=== PATIENT | male | born 1940 | race Caucasian/White ===

== ENCOUNTER 2020-08-10 15:05 | Inpatient (IN) | payer MEDICARE, SELFPAY ==
[2020-08-10] VITALS (8 sets, daily range): BP systolic 126–164; BP diastolic 58–97; PULSE 56–82; RESP 16–18; TEMP 36.5–37.2; O2SAT 97–100; BMI 33.5
--- NOTE | ~2020-08-10 | XR_ITS ---
EXAMINATION: XR surgery orthopedic DATE: 08/11/2020 14:14 INDICATION: Left hip nailing TECHNIQUE: 4 fluoroscopic spot images of the left hip and femur were obtained during procedure perfor med by Dr. Ford. Radiologist was not present for the imaging or procedure. The amount of fluorosco py time used during this procedure was 2.1 minutes. COMPARISON: 08/10/2020 FINDINGS: Interval reduction and internal fixation of the intratrochanteric/subtrochanteric fracture of the pro ximal femur with antegrade intramedullary vickie and femoral neck dynamic compression screw and distal i nterlocking screw fixation. Alignment post fixation appears near-anatomic. Mild to moderate left hip osteoarthritis with marginal osteophytes along the acetabular rim. IMPRESSION: 1. Near-anatomic alignment post internal fixation of an intertrochanteric/subtrochanteric fracture of the proximal left femur. Reviewed, dictated and finalized at location A. IMPRESSION: 1. Near-anatomic alignment post internal fixation of an intertrochanteric/subtr ochanteric fracture of the proximal left femur.
--- NOTE | ~2020-08-10 | XR_ITS ---
EXAMINATION: XR chest 1V DATE: 08/10/2020 15:45 INDICATION: Hypertension. Preop. TECHNIQUE: A single frontal view of the chest was obtained. COMPARISON: None. FINDINGS: The chest demonstrates clear lungs without pneumonia, pleural effusion, or pneumothorax. Th e heart size is normal. IMPRESSION: 1. No acute cardiopulmonary disease. Reviewed, dictated and finalized at location A.
--- NOTE | ~2020-08-10 | XR_ITS ---
EXAMINATION: XR hip LT 2V w AP pelvis DATE: 08/10/2020 15:43 INDICATION: Left hip pain. TECHNIQUE: An anteroposterior view of pelvis and 2 views of left hip were obtained. COMPARISON: None. FINDINGS: There is an intertrochanteric and subtrochanteric fracture of proximal left femur. The main distal fracture fragment demonstrates posterior angulation and 30 degrees varus angulation. There is moderate osteoarthritis of the hips. There is at least mild lumbar spondylosis. IMPRESSION: 1. Intertrochanteric and subtrochanteric fracture of proximal left femur. 2. Moderate osteoarthritis of the hips. Reviewed, dictated and finalized at location A.
--- NOTE | 2020-08-10 15:19 | ECG_ITS ---
Measurements Intervals [place] Rate: 78 P: [place]: 0 QRS: 3 QRSD: 102 T: -10 QT: 372 QTc: 426 Interpretive Statements ATRIAL FIBRILLATION VENTRICULAR PREMATURE COMPLEX INCOMPLETE RIGHT BUNDLE BRANCH BLOCK BASELINE ARTIFACT- I, II, III, AVF ABNORMAL ECG Electronically Signed On 08-10-2020 16:12:32 CDT by Quinn Redmond D.O.
--- NOTE | 2020-08-10 15:47 | ED.GENADULT ---
HPI - General Adult General Chief complaint: Extremity Injury, Lower Stated complaint: FALL/L HIP PAIN Source: RN notes reviewed History of Present Illness HPI narrative: Patient presents emergency department from home via EMS for left hip pain. Patient states he was walking when he went to turn his left foot became stuck causing him to fall to the ground collapsed onto his left hip. He states that since that time is had pain in his left hip and is been able to stand. He denies striking his head or any other injuries. Denies any fevers or chills chest pain shortness of breath numbness or tingling in the extremities or any other symptoms at this time Related Data Home Medications Medication Instructions Recorded Confirmed candesartan 8 mg PO DAILY 08/10/20 08/10/20 Allergies Allergy/AdvReac Type Severity Reaction Status Date / Time No Known Allergies Allergy Verified 08/10/20 15:13 Review of Systems Review of Systems: Narrative: Gen.: Denies fevers or chills Eyes: Denies eye pain or visual change ENT: Denies congestion Respiratory: Denies shortness of breath or cough CV: Denies chest pain or palpitations GI: Denies abdominal pain nausea, emesis or diarrhea Musculoskeletal: See HPI Neuro: Denies numbness, tingling, weakness or focal weakness Skin: Denies rash Except as documented, all other systems reviewed and negative [facility] Past Medical History Medical History (Updated 08/10/20 @ 16:57 by Robbin Wadsworth DO) Hypertension Social History Social History (Updated 08/10/20 @ 15:47 by Robbin Wadsworth DO) Smoking status: Never smoker Exam Narrative: Exam Narrative: APPEARANCE: No acute distress, nontoxic, resting in bed EYES: EOMI PERRL HEENT: Normocephalic, atraumatic, OMM Neck: Supple no midline tenderness to palpation RESPIRATORY: No respiratory distress Clear to auscultation bilaterally with no rhonchi wheezing or rales. CARDIOVASCULAR: Irregular irregular without murmurs rubs or gallops. ABDOMINAL: Soft, nontender, nondistended, no rebound or guarding MUSCULOSKELETAl: Moves all extremities. No clubbing, cyanosis or edema. No tenderness palpation bilateral upper and right lower extremity, the left hip is diffusely tender to palpation with pain with any movement, no tenderness of the left knee or ankle, dorsalis pedis pulse 2+, neurovascular intact NEURO: Awake and alert. Following commands, speech normal, no focal deficits SKIN:: Warm, dry. No rashes lesions or abrasions PSYCHIATRIC: Normal affect/mood, Course Course Emergency Course: Discussed with patient is atrial fibrillation. He states that 1 month ago he had had a physical that it found the A. fib. He states that time he seen his PCP and had an outpatient echo done that showed a valve abnormality which was felt to be the cause of his A. fib and especially following up with cardiology this coming week for further evaluation Discussed Dr. Ford presentation work-up. Agrees with consult with patient be n.p.o. after midnight Discussed with [employer] and Tera for Dr. Ibrahim presentation work-up. Agrees with consult Discussed with BENJY Bullock for Dr Grace presentation work-up. Agrees with admission at this time Discussed with patient and family results of workup and diagnosis. Discussed need for admission. Patient and family understand and agree to current treatment plan Vital Signs Vital signs: Vital Signs Temperature 97.9 F 08/10/20 15:09 Pulse Rate 82 08/10/20 15:09 Respiratory Rate 18 08/10/20 15:09 Blood Pressure 160/81 H 08/10/20 15:09 Pulse Oximetry 100 08/10/20 15:09 Temperature 97.9 F 08/10/20 15:09 Pulse Rate 76 08/10/20 16:43 Respiratory Rate 18 08/10/20 16:43 Blood Pressure 164/79 H 08/10/20 16:43 Pulse Oximetry 100 08/10/20 16:43 Medical Decision Making Vital Signs Vital Signs: Vital Signs Temperature 97.9 F 08/10/20 15:09 Pulse Rate 82 08/10/20 15:09 Respiratory Rate 18
[2020-08-10 16:06] LABS: Basophils Absolute Auto 0.1 K/mm3 (0.0-0.1); Basophils Percent Auto 0.8 % (0.2-1.2); Eosinophils Absolute Auto 0.3 K/mm3 (0-0.3); Eosinophils Percent Auto 2.6 % (0-4.4); Hematocrit 41.8 % (42.0-52.0); Hemoglobin 14.2 g/dL (14.0-18.0); Immature Granulocyte Absolute 0.03 K/mm3 (0.00-0.031); Immature Granulocyte Percent A 0.3 % (0-0.5); Lymphocytes Percent Auto 12.5 % (18.3-44.2); Mean Corpuscular Hemoglobin 31.7 pg (26-34); Mean Corpuscular Volume 93.3 fl (80-100); Mean Platelet Volume 10.2 fl (7.4-10.4); Monocytes Absolute Auto 1.5 K/mm3 (0.1-0.6); Neutrophils Absolute Auto 7.2 K/mm3 (1.3-6.7); Neutrophils Percent Auto 69.8 % (45.5-73.1); Platelet Count Result 260 k/mm3 (150-375); Red Blood Count 4.48 M/mm3 (4.6-6.20); Red Cell Distribution Width 13.2 % (11.5-14.5); White Blood Count 10.4 K/mm3 (4.5-10.0)
[2020-08-10 16:10] LABS: Alanine Aminotransferase 23 U/L (4-50); Albumin Level 4.3 g/dL (3.5-5.1); Alkaline Phosphatase 76 U/L (38-126); Anion Gap 8 mmol/L (8-16); Aspartate Amino Transferase 33 U/L (17-59); Bilirubin,Total 0.9 mg/dL (0.2-1.3); Blood Urea Nitrogen 17 mg/dL (9-20); Calcium 9.1 mg/dL (8.4-10.2); Carbon Dioxide 29 mmol/L (22-30); Chloride 100 mmol/L (98-107); Estimated CRCL calculation 68 ml/min; Estimated Glomerular Filt Rate > 60; Glucose 126 mg/dL (75-110); Potassium 4.2 mmol/L (3.4-5.0); Sodium 137 mmol/L (137-145)
[2020-08-10 16:36] LABS: Troponin I < 0.012 ng/mL (0.000-0.034)
[2020-08-10 16:42] LABS: INR 1.1; Prothrombin Time 13.6 Seconds (11.1-14.7)
[2020-08-10 16:43] LABS: Partial Thromboplastin Time 31.7 SECONDS (22.3-36.8)
--- NOTE | 2020-08-10 17:26 | PC.NURSE ---
Hospitalist at bedside at this time
--- NOTE | 2020-08-10 17:30 | PM.IMHP ---
H&P: HPI History of Present Illness Date/Time: 08/10/20 17:30 Chief complaint: Left hip pain after fall. Narrative: Bradly Guzman is a very pleasant 79-year-old male recently diagnosed with hypertension and atrial fibrillation who presented to the emergency department earlier today via EMS from home for evaluation of left hip pain after a fall. Unfortunately he lost his balance when transitioning from a large area rug to the wood angella, causing him to fall onto the floor on his left side. He had immediate pain in the left hip and was unable to get himself up. He was found to have a hip fracture and is being admitted in this setting. He reiterates that it was purely mechanical fall in the was not feeling lightheaded or dizzy prior to the fall. He also denies any other injuries, head trauma, and loss of consciousness. At this time he has minimal discomfort unless he tries to move the left leg. He denies paresthesias, skin color, and temperature changes distal to the fracture. Of note, he was found to be in atrial fibrillation on arrival to the emergency department and with further questioning, he reports having been told that he had atrial fibrillation perhaps a month or so ago during a [facility] screening. That prompted a visit to Dr. Davila, and he was found to be hypertensive for which he was started on an ARB. He also had an echocardiogram earlier this week and has an upcoming appointment with [facility] for further evaluation. He has no symptoms with the AFib, and specifically denies feelings of racing heart, palpitations, shortness of breath, etc. he has no known history of coronary disease, valvular heart disease, or obstructive sleep apnea. Review of Systems Review of Systems: Narrative: Twelve systems were reviewed with pertinent positives and negatives as per HPI. No recent cold or flu symptoms although he has had mild postnasal drip. He denies fever, chills, and sweats. No cough or shortness of breath. He denies orthopnea, PND, and daytime somnolence. No exertional chest pain. He will occasionally get short of breath when walking up a flight of steps. No lightheadedness, dizziness, or near syncope. No nausea, vomiting, diarrhea, or dysuria. He has mild neuropathy of the lower legs bilaterally, from knees to toes. He does monitor his glucose daily and it is rare to have a fasting glucose over 120. He has never been diagnosed with diabetes per se as considered prediabetic. No history of venous thromboembolism. Except as documented, all other systems were reviewed and are negative. [facility] Past Medical History Medical History (Updated 08/10/20 @ 21:09 by Ara Driscoll PA-C) Atrial fibrillation Hypertension Peripheral neuropathy Mild neuropathy of the lower legs bilaterally. Pre-diabetes Surgical History Surgical History (Updated 08/10/20 @ 21:04 by Ara Driscoll PA-C) History of tonsillectomy Family History Family History Mother Stomach cancer Father Malignant neoplasm of prostate Bone cancer Grandparent Cerebrovascular accident Social History Social History (Updated 08/10/20 @ 21:06 by Ara Driscoll PA-C) Social History: Surrogate decision maker: Nevin Claros, daughter. Code status: Full code. Smoking status: Never smoker Alcohol intake: never Alcohol use details: Drinks maybe 1 beer every 2 to 3 weeks at the most. Substance use: never Additional living arrangements comments: Lives in his own home in [place]. Additional occupation/education comments: Retired from working in a foundry and doing security. Gender identity (if verbalized by the patient): Male Spiritual care concerns: No Meds Home Medications and Allergies Home Medications Medication Instructions Recorded Confirmed Type candesartan 8 mg PO DAILY 08/10/20 08/10/20 History Allergies Allergy/AdvReac Type Kaylan
[2020-08-10 17:49] LABS: Add Urine Microscopic? YES; Appearance Urine Clear (Clear); Bacteria Urine Trace /hpf; Bilirubin Urine Negative (Negative); Blood Urine Negative (Negative); Color Urine Yellow (Yellow); Glucose Urine UA Negative (Negative); Ketones Urine 1+ mg/dL (Negative); Leukocyte Esterase Ur Negative LEU/UL (Negative); Nitrate Urine Negative (Negative); Protein Urine Negative (Negative); Specific Grav Ur 1.017 (1.001-1.035); Squamous Epithelial Cell Urine Rare /hpf (Few); Urobilinogen Urine Negative mg/dL (<2.0); WBC Urine 0-3 /hpf
--- NOTE | 2020-08-10 18:00 | PC.NURSE ---
This patient, Bradly Guzman, was admitted to [facility] Surg Room 305-01. Patient/family oriented to hospital policies and general routines including ID bracelet, bed and alarms, visiting hours, pain management, procedures, bathroom and other care routines, personal items, smoking policy, room service/diet, and visiting hours. Valuables list has been completed. Information on how to activate the Rapid Response Team has been discussed. Patient/Family are encouraged to report perceived risks to care and to ask questions if they do not understand what they are told or what they should do.
[2020-08-10] MEDS: MORPHINE SULFATE (*CRX) 4 MG/ML INJ IV PUSH (18:53)
[2020-08-10] MEDS: SODIUM CHLORIDE 0.9% IV 1,000 ML 80 ML IV CONT (18:55)
[2020-08-10] MEDS: HYDROcodone/acetaminophen (*CRX) 5-325 MG TABLET 1 TAB PO (22:55)
[2020-08-11] VITALS (20 sets, daily range): BP systolic 98–159; BP diastolic 56–80; PULSE 63–92; RESP 15–20; TEMP 36.6–38; O2SAT 93–100
[2020-08-11] MEDS: MORPHINE SULFATE (*CRX) 4 MG/ML INJ IV PUSH (06:15)
[2020-08-11 06:29] LABS: Basophils Absolute Auto 0.1 K/mm3 (0.0-0.1); Basophils Percent Auto 0.5 % (0.2-1.2); Eosinophils Absolute Auto 0.1 K/mm3 (0-0.3); Eosinophils Percent Auto 1.2 % (0-4.4); Hematocrit 38.2 % (42.0-52.0); Immature Granulocyte Absolute 0.04 K/mm3 (0.00-0.031); Immature Granulocyte Percent A 0.3 % (0-0.5); Lymphocytes Absolute Auto 1.57 K/mm3 (0.9-3.2); Lymphocytes Percent Auto 13.4 % (18.3-44.2); Mean Corpuscular Hemoglobin 31.9 pg (26-34); Mean Corpuscular Volume 93.9 fl (80-100); Mean Platelet Volume 10.5 fl (7.4-10.4); Monocytes Absolute Auto 1.9 K/mm3 (0.1-0.6); Monocytes Percent Auto 16.1 % (2.6-8.5); Neutrophils Percent Auto 68.5 % (45.5-73.1); Platelet Count Result 239 k/mm3 (150-375); Red Blood Count 4.07 M/mm3 (4.6-6.20); White Blood Count 11.7 K/mm3 (4.5-10.0)
[2020-08-11 06:42] LABS: Anion Gap 7 mmol/L (8-16); Blood Urea Nitrogen 15 mg/dL (9-20); Calcium 8.5 mg/dL (8.4-10.2); Carbon Dioxide 30 mmol/L (22-30); Chloride 98 mmol/L (98-107); Estimated CRCL calculation 68 ml/min; Estimated Glomerular Filt Rate > 60; Glucose 140 mg/dL (75-110); Potassium 3.9 mmol/L (3.4-5.0); Sodium 135 mmol/L (137-145)
--- NOTE | 2020-08-11 08:35 | PM.CNCAR ---
Assessment and Plan Additional Plan this is an 79-year-old man who fell in his home yesterday sustaining a left hip fracture. Obviously he requires surgical treatment of this fracture. Why I am seeing him to assess his cardiac risk preoperatively because he has been found to have both asymptomatic atrial fibrillation as well as asymptomatic aortic valve stenosis. it is clear that the patient does have an element of AV node dysfunction since he is on no rate-controlling medications and is not at all tachycardic and requires no rate control despite the fact that he has gone into atrial fibrillation. The duration of the atrial fibrillation is obviously unknown Neither of these presents significant increased cardiac risk for his hip repair and does not require any further preoperative cardiac testing. This patient should be systemically anticoagulated following surgery as soon as the surgeon is comfortable with that. We will follow him with you in the perioperative setting but at this point there are no specific cardiac recommendations to make Sp Ibrahim MD [facility] History of Present Illness History of Present Illness Consult date/time: 08/11/20 08:35 Consult reason: atrial fibrillation, aortic stenosis and pre-op evaluation Reason For Visit: Left hip pain after fall. Narrative: This is a very pleasant 79-year-old man I am seeing at the request of the hospitalist's an orthopedic surgery service to provide preoperative cardiac risk assessment. The patient I was not known to have any cardiac problems in the past until recently when he went for his annual [facility] screening exam about 6 weeks ago and was told by the staff that he had developed atrial fibrillation. He was completely unaware of his arrhythmia and asymptomatic of it and was advised to see his physician. He did see his PCP in the office an echocardiogram was requested because he has a cardiac murmur and with those findings he was scheduled to see us in the office next week as a new patient. The echocardiogram was done a couple of days ago and demonstrates evidence of normal left ventricular systolic function and mild aortic valve stenosis with a valve area of 1.3 cm2. Patient's electrocardiogram demonstrates rate controlled atrial fibrillation there are no changes of acute ischemia or injury. His only complaint at the time of my interview is pain at the site of his hip. He came to the hospital through the emergency room last evening after falling in his home he thinks he tripped over Joselo carpet he fell and sustained a left hip fracture. According to the records the plan is the orthopedic surgeries to repair this today although the orthopedic surgeon has not yet seen the patient so I am not completely sure of that. He denies any symptoms of chest pain shortness of breath orthopnea PND edema palpitations or syncope. Review of Systems Constitutional: Constitutional: Reports no additional constitutional complaints Eyes: Eyes: Reports no additional eye complaints ENT: Reports system reviewed and no additional complaints, except as documented Cardiovascular: Cardiovascular: Reports no additional cardiovascular complaints Respiratory: Respiratory: Reports no additional respiratory complaints Gastrointestinal: Gastrointestinal: Reports no additional gastrointestinal complaints Musculoskeletal: Musculoskeletal: Reports as per HPI Integumentary/Breasts: Skin/Breast: Reports system reviewed and no additional complaints, except as docu Neurologic: Reports system reviewed and no additional complaints, except as documented Endocrine: Endocrine: Reports no additional endocrine complaints Hematologic/Lymphatic: Hematologic/Lymphatic: Reports no additional hematologic/lymphatic complaints Allergic/Immunologic: Allergic/Immunologic: Reports no additional allergic/immunologic complaints [facility] Past Medical History Medical History (Updated 08/10/20 @ 21:09 by Ara Driscoll PA-C)
--- NOTE | 2020-08-11 08:48 | PM.CNOR ---
Assessment and Plan Assessment and plan (1) Closed intertrochanteric fracture of left femur: Qualifiers: Encounter type: initial encounter Fracture alignment: displaced Qualified Code(s): S72.142A - Displaced intertrochanteric fracture of left femur, initial encounter for closed fracture Code(s): S72.142A - Displaced intertrochanteric fracture of left femur, initial encounter for closed fracture Status: Acute Assessment and Plan: Discussed nonoperative and operative treatment options with the patient. Risks and benefits of each as well as alternatives were reviewed. All of the patient's questions were answered. The risks of surgery reviewed including but not limited to: Neurovascular damage, wound complication, infection, blood clot, pulmonary embolus, stroke, myocardial infarction, and anesthetic risks up to and including . Continued pain and possible dysfunction were explained. Specific risks of the procedure including later recurrence of deformity. No guarantees were offered. If hardware used, discussed risk of failure/ breakage and possible need for removal. If complications occur, the patient understands the need for further treatment, possible further surgery. Patient verbalizes understanding and wishes to proceed. PLAN:LEFT hip fracture fixation with intramedullary hip screw History of Present Illness HPI Consult date: 08/11/20 Requesting physician: Robbin Wadsworth DO Consult reason: fracture (left hip) Chief complaint: Left hip pain after fall. Narrative: 79 yo man, fell at home. Left hip pain. Not able to bear weight. No other injury, no LOC, no head/ neack/ back pain. Sharp pain, worse with movmt. +Muscle spasm. Denies N/T Review of Systems Constitutional: Constitutional: Denies fever(s) Eyes: Eyes: Denies blurry vision ENT: Reports Normal hearing present Cardiovascular: Cardiovascular: Denies chest pain, Reports irregular heart rhythm and Denies dyspnea Respiratory: Respiratory: Denies dyspnea and Denies wheezing Gastrointestinal: Gastrointestinal: Denies abdominal pain Genitourinary: Genitourinary: Denies urinary urgency Musculoskeletal: Musculoskeletal: Reports as per HPI and Denies numbness Integumentary/Breasts: Skin/Breast: Denies changing lesions and Denies sores Neurologic: Reports Normal hearing present, Denies behavioral changes, Denies confusion, Denies numbness and Denies convulsions Psychiatric: Psychiatric: Denies behavioral changes, Denies confusion and Denies hallucinations Endocrine: Endocrine: Denies heat intolerance Hematologic/Lymphatic: Hematologic/Lymphatic: Denies easy bleeding Allergic/Immunologic: Allergic/Immunologic: Denies wheezing [facility] Past Medical History Medical History Atrial fibrillation Hypertension Peripheral neuropathy Mild neuropathy of the lower legs bilaterally. Pre-diabetes Surgical History Surgical History History of tonsillectomy Family History Family History Mother Stomach cancer Father Malignant neoplasm of prostate Bone cancer Grandparent Cerebrovascular accident Social History Social History Social History: Surrogate decision maker: Nevin Claros, daughter. Code status: Full code. Smoking status: Never smoker Alcohol intake: never Alcohol use details: Drinks maybe 1 beer every 2 to 3 weeks at the most. Substance use: never Additional living arrangements comments: Lives in his own home in [place]. Additional occupation/education comments: Retired from working in a foundry and doing security. Gender identity (if verbalized by the patient): Male Spiritual care concerns: No Meds Home Medications and Allergies Home Medications Medication Instruction
--- NOTE | 2020-08-11 08:59 | PM.IMPN ---
Progress Note: A&P Assessment and Plan (1) Closed intertrochanteric fracture of left femur: Qualifiers: Encounter type: initial encounter Fracture alignment: displaced Qualified Code(s): S72.142A - Displaced intertrochanteric fracture of left femur, initial encounter for closed fracture Code(s): S72.142A - Displaced intertrochanteric fracture of left femur, initial encounter for closed fracture Status: Acute Assessment and Plan: Patient had tripped and fell prior to arrival. The patient has been admitted to the hospitalist service and Dr. Ford has been consulted for repair of his left hip fracture. He is NPO at this time for surgery this afternoon by Dr. Ford Ortho Surgery He denies much pain at this time, just some spasming. Continue pain control as per Ortho Continue monitoring. Appreciate orthopedic consultation and their input. (2) Atrial fibrillation: Code(s): I48.91 - Unspecified atrial fibrillation Status: Acute Assessment and Plan: Asymptomatic atrial fibrillation. New onset. Patient was found to be in atrial fibrillation on arrival with a controlled heart rate. He states he followed up with Dr. Ibrahim in the office and had an echocardiogram done Friday and was supposed to follow-up in the office later this week. Patient is still in atrial fibrillation with a controlled heart rate of 64 beats per minute, with PVCs noted and PVC couplets. Otherwise no acute abnormality. Cardiology feels at this time he can still undergo surgery and systemic anticoagulation following surgery should be started. Continue monitoring the patient on telemetry. Cardiology's input is greatly appreciated. (3) Aortic stenosis: Code(s): I35.0 - Nonrheumatic aortic (valve) stenosis Status: Acute Assessment and Plan: Patient has asymptomatic aortic valve stenosis. Cardiology feels he is still stable for surgery at this time. Cardiology will continue following the patient during hospitalization. (4) Hypertension: Code(s): I10 - Essential (primary) hypertension Status: Acute Assessment and Plan: His blood pressure has been well controlled. Will continue his home medications and continue monitoring. 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 He states he is just diet controlled and follows up with his primary care regularly. While he is here in the hospital I will start glucose monitoring, sliding scale insulin, and hypoglycemic protocol. Will check hemoglobin A1c in the morning. Continue monitoring. Time Spent With Patient Time with patient: 25 - 35 minutes Subjective Date/time seen: 08/11/20 08:59 Interval history: Date of service 08/11/2020: Patient reports having intermittent spasming to his left hip and left upper thigh. He is otherwise comfortable without much pain at this time. He denies any fevers, chills, chest pain, shortness of breath, palpitations, nausea, vomiting, abdominal pain, urinary issues, leg swelling, calf pain or any other symptoms at this time. Review of Systems Review of Systems: All systems reviewed & are unremarkable except as noted in HPI and below Exam Narrative: Exam Narrative: General: 79-year-old man laying flat in bed with head elevated at 35?. Appears comfortable. In no acute distress. Skin: No jaundice or cyanosis. Good skin turgor. Neck: Full range of motion. Supple. Respiratory: Lungs are clear to auscultation bilaterally. No bony chest wall tenderness. Cardiovascular
[2020-08-11] MEDS: LACTATED RINGERS 1,000 ML 30 ML IV CONT ×2 (11:20→14:19)
[2020-08-11 11:25] LABS: Glucose Point of Care 135 (65-105)
--- NOTE | 2020-08-11 11:31 | PC.NURSE ---
Left for surgery @1050am
--- NOTE | 2020-08-11 11:47 | PC.NURSE ---
Contacted preop. Leticia was who I spoke to. Notified her of a 9 beat run of V-tach. Event was printed. Carol BURLESON. Made aware.This event occured at 1138am. Pt was down in surgical holding at this time.No new orders received.
--- NOTE | 2020-08-11 11:57 | WPDANESEPPF ---
Anes - Initial Pre Proc Eval Procedure: Operation Date: 08/11/20 12:00 Proposed Procedures p Left Intertrochanteric Nail - David Ford MD Operation Date: 08/11/20 12:30 Proposed Procedures p Intertrochanteric Nail(Left) - David Ford MD Date/Time: 08/11/20 11:57 Surgeon: Kaylee Arteaga PA-C Pre Op Diagnosis: Left hip pain after fall. Patient Data Age: 79 Gender: M Height: 5 ft 9 in Weight: 103 kg Last Vital Signs Temp 100.4 F H 08/11/20 11:15 Pulse 92 08/11/20 11:15 Resp 20 08/11/20 06:00 BP 159/62 H 08/11/20 11:15 Pulse Ox 98 08/11/20 11:15 Allergies Allergy/AdvReac Type Severity Reaction Status Date / Time No Known Allergies Allergy Verified 08/10/20 15:13 Home Medications Medication Instructions Recorded Confirmed Type candesartan 8 mg PO DAILY 08/10/20 08/10/20 History Laboratory Tests 08/10/20 08/10/20 08/10/20 15:51 15:51 15:51 WBC 10.4 K/mm3 H K/mm3 (4.5-10.0) RBC 4.48 M/mm3 L M/mm3 (4.6-6.20) Hgb 14.2 g/dL g/dL (14.0-18.0) Hct 41.8 % L % (42.0-52.0) MCV 93.3 fl fl (80-100) MCH 31.7 pg pg (26-34) MCHC 34.0 g/dl g/dl (32-36) RDW 13.2 % % (11.5-14.5) Plt Count 260 k/mm3 k/mm3 (150-375) MPV 10.2 fl fl (7.4-10.4) Immature Gran % (Auto) 0.3 % % (0-0.5) Neut % (Auto) 69.8 % % (45.5-73.1) Lymph % (Auto) 12.5 % L % (18.3-44.2) [place] % (Auto) 14.0 % H % (2.6-8.5) Eos % (Auto) 2.6 % % (0-4.4) Baso % (Auto) 0.8 % % (0.2-1.2) Lymph # (Auto) 1.30 K/mm3 K/mm3 (0.9-3.2) [place] # (Auto) 1.5 K/mm3 H K/mm3 (0.1-0.6) Eos # (Auto) 0.3 K/mm3 K/mm3 (0-0.3) Baso # (Auto) 0.1 K/mm3 K/mm3 (0.0-0.1) Abs Immat Gran (auto) 0.03 K/mm3 K/mm3 (0.00-0.031) Absolute Neuts (auto) 7.2 K/mm3 H K/mm3 (1.3-6.7) Absolute Nucleated RBC 0.0 K/mm3 K/mm3 (0.0-0.012) Nucleated RBC % 0.0 % % (0.0-0.2) PT 13.6 Seconds Seconds (11.1-14.7) INR 1.1 APTT 31.7 SECONDS SECONDS (22.3-36.8) Sodium 137 mmol/L mmol/L (137-145) Potassium 4.2 mmol/L mmol/L (3.4-5.0) Chloride 100 mmol/L mmol/L (98-107) Carbon Dioxide 29 mmol/L mmol/L (22-30) Anion Gap 8 mmol/L mmol/L (8-16) BUN 17 mg/dL mg/dL (9-20) Creatinine 0.90 mg/dL mg/dL (0.7-1.3) Estim Creat Clear Calc 68 ml/min ml/min Estimated GFR > 60 (59 - ) Glucose 126 mg/dL H mg/dL (75-110) POC Capillary Glucose Calcium 9.1 mg/dL mg/dL (8.4-10.2) Total Bilirubin 0.9 mg/dL mg/dL (0.2-1.3) AST 33 U/L U/L (17-59) ALT 23 U/L U/L (4-50) Alkaline Phosphatase 76 U/L U/L (38-126) Troponin I Total Protein 7.0 g/dL g/dL (6.3-8.2) Albumin 4.3 g/dL g/dL (3.5-5.1) Urine Color Urine Appearance Urine pH Ur Specific [place] Urine Protein Urine Glucose (UA) Urine Ketones Ur Blood (Man) Urine Nitrate Urine Bilirubin Urine Urobilinogen Leukocyte Esterase Rfl Urine RBC Urine WBC Ur Squamous Epith Cells Urine Bacteria Blood Type Antibody Screen 08/10/20 08/10/20 08/10/20 15:51 15:53 17:32 WBC RBC Hgb Hct MCV MCH MCHC RDW Plt Count MPV Immature Gran % (Auto) Neut % (Auto) Lymph % (Auto) [place] % (Auto) Eos % (Auto) Baso % (Auto)
--- NOTE | 2020-08-11 11:58 | SUR.PREOP ---
1148-NOTIFIED BY IMU STAFF PT HAD 11 BEAT RUN OF VTACH AT 1130. IMMEDIATELY WENT TO PT BEDSIDE, PT A&O, DENIES ANY S/S R/T ARRHYTHMIA. PT PLACED ON PORTABLE MONITOR,1 PVCC NOTED, VSS. DR. BENAVIDEZ INFORMED AND IN TO ASSESS PT, WILL MONITOR AND PROCEED, NO NEW ORDER.
--- NOTE | 2020-08-11 12:45 | WPDHPUPDATE1 ---
History and Physical Update Update Date/Time: 08/11/20 12:45 History and Physical has been reviewed, including an updated exam of the patient. There are NO changes in the patient's condition. Risks, benefits, and alternatives have been discussed and questions answered. Patient agrees to proceed with procedure.
[2020-08-11] MEDS: ceFAZolin 2 GM/D5W 50 ML 2 GM/50 ML BAG IVPB (12:49)
[2020-08-11] MEDS: BUPIVACAINE/EPINEPHRINE 0.5% 10 ML VIAL 20 ML INFILTRATE (13:28)
--- NOTE | 2020-08-11 14:20 | PM.PROC ---
Procedure Note - Detailed Date of procedure: 08/11/20 Pre-op diagnosis: Left hip pain after fall. left hip intertrochanteric fracture Post-op diagnosis: same Procedure performed: left intramedullary hip screw Description of procedure: Implants used: Bere natural nail 125 degree angle 11.5 millimeter diameter 40centimeter length nail, lag screw 10.5 millimeter x 110 millimeter length. INDICATIONS: This is an 79-year-old -man who fell sustaining a left hip intertrochanteric femur fracture. Indicated for reduction and intramedullary hip screw fixation, left hip. DESCRIPTION OF PROCEDURE: After informed consent the operative extremity was marked in the preoperative holding area. Patient received intravenous antibiotics. The patient was taken to the operative room, placed in the supine position, general anesthesia induced by the anesthesia team, and was placed on a fracture table with longitudinal traction applied to the left leg. The hip fracture was reduced to near anatomic position and verified with image intensification. A time-out was performed confirming the patient, site of the surgery and plan. The left lower extremity was prepped and draped sterilely from the knee to the iliac crest region using a ChloraPrep skin solution. Incision was made just proximal to greater trochanter down to the subcutaneous tissues. Hemostasis controlled with electrocautery. Blunt dissection through the fascia to the tip of the greater trochanter. A starter awl was placed at the tip of the greater trochanter into the medullary canal of the femur. This was checked with image intensification and was in good position. Intramedullary guide vickie positioned. A one-step hand reaming done proximally. Intramedullary canal was reamed with a 12.5 millimeter flexible reamer. Measuring was then performed off of the guide vickie. Neck angle selected off of preoperative radiographs templating. 125 degree 11.5 X 400mm Nail opened on the back table and assembled. This was then inserted over the guide vickie to the correct depth. Guide vickie removed. Lag screw was then placed with a stab incision over the lateral femur using a 10 blade knife. Blunt dissection down to the lateral side of the bone. Soft tissue protectors placed. Guide pin placed in the center center position of the femoral head and measured. 110millimeter x 10.5 millimeter lag screw placed to correct depth and verified with image intensification. Traction released from the leg and compression of the fracture performed with the external compression device. Proximal locking screw placed. Distal locking of the nail necessary due to instability in the intramedullary canal and proximal femur. Stab incision made lateral distal thigh. Blunt dissection down lateral side of the femur. Image intensification used to guide drill which was placed through the locking hole. Distal femur measured and the appropriate size screw placed. Image intensification confirmed the placement through the locking hole. Final image intensification confirm reduction of the fracture and placement of the hardware. Wounds then thoroughly irrigated with antibiotic solution. Fascia repaired with 0 Vicryl interrupted suture. Subcutaneous tissue repaired with 00 Vicryl interrupted suture and skin repaired with jarred. Sterile dressings applied. Patient then awoke from anesthesia, extubated, taken to recovery room stable condition. All sponge, needle and instrument counts correct at the end the case. Implants: Bere natural nail 125 degree angle 11.5 millimeter diameter 40centimeter length nail, lag screw 10.5 millimeter x 110 millimeter length. 40 x 5 mm distal locking screw Anesthesia: GLMA Surgeon: David Ford MD Area Secretary: 1st clinical trials assistant Estimated blood loss (mL): 100 Drains: No Packing: No Pathology: none sent Complications: None Condition: stable Disposition: PACU
[2020-08-11] MEDS: fentaNYL CITRATE INJ (*CRX) 100 MCG/2 ML VIAL 25 MCG IV PUSH ×4 (14:32→14:53)
[2020-08-11 15:08] LABS: Glucose Point of Care 171 (65-105)
[2020-08-11] MEDS: KCL 20 MEQ/D5/0.45% SOD CHL 1,000 ML 80 ML IV CONT (17:45)
[2020-08-11] MEDS: HYDROcodone/acetaminophen (*CRX) 5-325 MG TABLET 1 TAB PO (17:46)
[2020-08-11 18:25] LABS: Glucose Point of Care 174 (65-105)
[2020-08-11] MEDS: RIVAROXABAN 10 MG TABLET PO (20:54)
[2020-08-11 21:06] LABS: Glucose Point of Care 286 (65-105)
[2020-08-12] VITALS (12 sets, daily range): BP systolic 95–123; BP diastolic 59–68; PULSE 74–109; RESP 18–20; TEMP 36.9–37.6; O2SAT 94–97
[2020-08-12 06:34] LABS: Basophils Percent Auto 0.3 % (0.2-1.2); Eosinophils Percent Auto 0.3 % (0-4.4); Hematocrit 33.7 % (42.0-52.0); Hemoglobin 11.8 g/dL (14.0-18.0); Immature Granulocyte Absolute 0.04 K/mm3 (0.00-0.031); Immature Granulocyte Percent A 0.3 % (0-0.5); Lymphocytes Absolute Auto 1.52 K/mm3 (0.9-3.2); Lymphocytes Percent Auto 10.5 % (18.3-44.2); Mean Corpuscular Hemoglobin 32.3 pg (26-34); Mean Corpuscular Volume 92.3 fl (80-100); Mean Platelet Volume 10.3 fl (7.4-10.4); Monocytes Absolute Auto 2.6 K/mm3 (0.1-0.6); Monocytes Percent Auto 17.7 % (2.6-8.5); Neutrophils Absolute Auto 10.2 K/mm3 (1.3-6.7); Neutrophils Percent Auto 70.9 % (45.5-73.1); Platelet Count Result 215 k/mm3 (150-375); Red Blood Count 3.65 M/mm3 (4.6-6.20); Red Cell Distribution Width 12.9 % (11.5-14.5); White Blood Count 14.4 K/mm3 (4.5-10.0)
[2020-08-12 06:54] LABS: Hemoglobin A1C 5.6 % (<5.7)
[2020-08-12 06:56] LABS: Anion Gap 4 mmol/L (8-16); Blood Urea Nitrogen 17 mg/dL (9-20); Calcium 8.1 mg/dL (8.4-10.2); Carbon Dioxide 31 mmol/L (22-30); Chloride 99 mmol/L (98-107); Estimated CRCL calculation 68 ml/min; Estimated Glomerular Filt Rate > 60; Glucose 161 mg/dL (75-110); Potassium 4.3 mmol/L (3.4-5.0); Sodium 134 mmol/L (137-145)
[2020-08-12 08:10] LABS: Glucose Point of Care 144 (65-105)
[2020-08-12] MEDS: DOCUSATE SODIUM 100 MG CAPSULE PO ×2 (08:50→17:25)
--- NOTE | 2020-08-12 09:00 | PM.PNCARD ---
Progress Note: A&P Additional Plan 79-year-old man with: Fall and left hip fracture status post repair postop day 1. No cardiovascular complications of surgery Asymptomatic a atrial fibrillation and aortic stenosis. Will arrange for follow-up in our office of these issues following discharge. No additional cardiac recommendations at this time will see p.r.n. while he is in the hospital Sp Ibrahim MD FAC Subjective Date/time seen: Date of service: 08/12/20 09:00 Interval history: Follow-up visit in this 79-year-old gentleman with asymptomatic atrial fibrillation of unknown chronicity and asymptomatic mild aortic valve stenosis. Patient was admitted because of a fall and left hip fracture which was repaired yesterday. Sitting up in chair in his room this morning just finished physical therapy. Placed on prophylactic dosage of Xarelto by surgery. No cardiovascular complaints and no evidence of any cardiac complications following surgery Exam Const: General: comfortable and no acute distress HENMT: Mouth: Yes moist mucous membranes Eyes: Sclera: sclerae normal Pupils: Equal, round and reactive pupils present Neck: Neck: supple and no JVD Thyroid: thyroid normal Resp: Effort & Inspection: normal respiratory effort Auscultation: clear to auscultation bilaterally Cardio: Rhythm: abnormal rhythm Heart sounds: Murmur heart sound present Other: Irregularly irregular, grade 2/6 crescendo decrescendo murmur at the base, no diastolic murmur GI: Auscultation: normal bowel sounds Skin: General skin exam: normal color Neuro: Cognition (Neuro): normal cognition Objective Data Vital Signs Vital Signs: Vital Signs - 24 hr 08/11/20 11:15 08/11/20 12:00 08/11/20 14:19 Temperature 38.0 C H 36.6 C Pulse Rate 92 76 91 Respiratory Rate 18 Blood Pressure 159/62 H 158/80 H Pulse Oximetry 98 100 08/11/20 14:30 08/11/20 14:45 08/11/20 15:00 Temperature Pulse Rate 88 83 88 Respiratory Rate 16 15 19 Blood Pressure 144/68 H 136/69 134/63 Pulse Oximetry 100 93 94 08/11/20 15:14 08/11/20 15:30 08/11/20 15:43 Temperature 36.8 C Pulse Rate 81 83 84 Respiratory Rate 20 16 18 Blood Pressure 134/63 98/56 L 125/75 Pulse Oximetry 95 96 96 08/11/20 15:58 08/11/20 16:00 08/11/20 16:13 Temperature 37.7 C H 36.7 C Pulse Rate 88 82 88 Respiratory Rate 18 16 Blood Pressure 126/75 145/69 H Pulse Oximetry 95 95 08/11/20 17:13 08/11/20 20:51 08/11/20 21:00 Temperature 37.0 C 37.0 C Pulse Rate 81 80 Respiratory Rate 18 Blood Pressure 120/69 Pulse Oximetry 96 08/11/20 22:00 08/12/20 00:00 08/12/20 02:00 Temperature 36.9 C 37.1 C Pulse Rate 87 93 81 Respiratory Rate 16 20 Blood Pressure 125/62 123/67 Pulse Oximetry 96 97 08/12/20 04:00 08/12/20 06:00 08/12/20 08:00 Temperature 37.4 C Pulse Rate 109 H 80 74 Respiratory Rate 20 Blood Pressure 119/68 Pulse Oximetry 97 Intake/Output Intake/Output: Intake & Output 08/09/20 08/10/20 08/11/20 08/12/20 23:59 23:59 23:59 23:59 Intake Total 457 698 7705 Output Total 1450 900 Balance 100 -1050 350 Meds/Results Medications: Active Medications Generic Name Dose Route Start Last Admin Trade Name Freq PRN Reason Stop Dose Admin Acetaminophen 650 mg 08/10/20 21:14 Tylenol Tablet PO Q6H PRN Mild Pain (1-3) or Fever Hydrocodone Bitart/Acetaminophen 1 tab 08/10/20 21:14 08/11/20 17:46 [place] 5-325 Mg PO 1 tab Q6H PRN Administration Pain Rated 4-6 Candesartan Cilexetil 8 mg 08/11/20 09:00 08/12/20 08:50 Atacand PO 8 mg DAILY VANDANA Administration Dextrose 12.5 gm 08/11/20 10:34 Dextrose 50% Syringe IV PUSH PRN PRN Hypoglycemia Protocol Diazepam 5 mg 08/11/20 15:43 Valium Po PO Q8H PRN Muscle Spasm Docusate Sodium 100 mg 08/11/20 17:00 08/12/20 08:50 Colace Capsule PO 100 mg BID VANDANA Administration Glucagon 1
--- NOTE | 2020-08-12 10:08 | WPDANESPN ---
Anes - Prog Note Post-Op Date/Time: 08/12/20 10:08 Cardiovascular status: normal Respiratory status: normal Airway patency: baseline Mental status: baseline Post-Op hydration status: normal Vital Signs: Last Vital Signs Temp 37.4 C 08/12/20 06:00 Pulse 74 08/12/20 08:00 Resp 20 08/12/20 06:00 BP 119/68 08/12/20 06:00 Pulse Ox 97 08/12/20 06:00 Pain Score (VAS): 0/10. Patient resting in bed at time of assessment, appears comfortable. PT at bedside. No additional issues or concerns voiced by patient at time of assessment. I/O: Intake & Output 08/11/20 08/12/20 08/12/20 23:59 07:59 15:59 Intake Total 100 1250 Output Total 150 900 Balance -50 350 Laboratory Tests 08/12/20 05:57 08/12/20 05:57 08/11/20 08/11/20 08/11/20 11:24 15:00 17:39 WBC RBC Hgb Hct MCV MCH MCHC RDW Plt Count MPV Immature Gran % (Auto) Neut % (Auto) Lymph % (Auto) [place] % (Auto) Eos % (Auto) Baso % (Auto) Lymph # (Auto) [place] # (Auto) Eos # (Auto) Baso # (Auto) Abs Immat Gran (auto) Absolute Neuts (auto) Absolute Nucleated RBC Nucleated RBC % Sodium Potassium Chloride Carbon Dioxide Anion Gap BUN Creatinine Estim Creat Clear Calc Estimated GFR Glucose POC Capillary Glucose 135 H 171 H 174 H Hemoglobin A1c Calcium 08/11/20 08/12/20 08/12/20 20:58 05:57 05:57 WBC RBC Hgb Hct MCV MCH MCHC RDW Plt Count MPV Immature Gran % (Auto) Neut % (Auto) Lymph % (Auto) [place] % (Auto) Eos % (Auto) Baso % (Auto) Lymph # (Auto) [place] # (Auto) Eos # (Auto) Baso # (Auto) Abs Immat Gran (auto) Absolute Neuts (auto) Absolute Nucleated RBC Nucleated RBC % Sodium 134 L Potassium 4.3 Chloride 99 Carbon Dioxide 31 H Anion Gap 4 L BUN 17 Creatinine 0.90 Estim Creat Clear Calc 68 Estimated GFR > 60 Glucose 161 H POC Capillary Glucose 286 H Hemoglobin A1c 5.6 Calcium 8.1 L 08/12/20 08/12/20 05:57 08:03 WBC 14.4 H RBC 3.65 L Hgb 11.8 L Hct 33.7 L MCV 92.3 MCH 32.3 MCHC 35.0 RDW 12.9 Plt Count 215 MPV 10.3 Immature Gran % (Auto) 0.3 Neut % (Auto) 70.9 Lymph % (Auto) 10.5 L [place] % (Auto) 17.7 H Eos % (Auto) 0.3 Baso % (Auto) 0.3 Lymph # (Auto) 1.52 [place] # (Auto) 2.6 H Eos # (Auto) 0.0 Baso # (Auto) 0.0 Abs Immat Gran (auto) 0.04 H Absolute Neuts (auto) 10.2 H Absolute Nucleated RBC 0.0 Nucleated RBC % 0.0 Sodium Potassium Chloride Carbon Dioxide Anion Gap BUN Creatinine Estim Creat Clear Calc Estimated GFR Glucose POC Capillary Glucose 144 H Hemoglobin A1c Calcium Post-procedural complaints: none Patient Feedback: Patient satisfied with anesthetic care.
--- NOTE | 2020-08-12 12:24 | PM.IMPN ---
Progress Note: A&P Assessment and Plan (1) Closed intertrochanteric fracture of left femur: Qualifiers: Encounter type: initial encounter Fracture alignment: displaced Qualified Code(s): S72.142A - Displaced intertrochanteric fracture of left femur, initial encounter for closed fracture Code(s): S72.142A - Displaced intertrochanteric fracture of left femur, initial encounter for closed fracture Status: Acute Assessment and Plan: Patient had tripped and fell prior to arrival. The patient has been admitted to the hospitalist service and Dr. Ford has been consulted for repair of his left hip fracture. Postop day 1 after having a left intramedullary hip screw by Dr. Ford Ortho Surgery He denies much pain at this time, just some spasming. Pain management, Discharge planning, Post-op care, DVT Prophylaxis per Dr. Ford Continue monitoring. Appreciate orthopedic consultation and their input. (2) Atrial fibrillation: Code(s): I48.91 - Unspecified atrial fibrillation Status: Acute Assessment and Plan: Asymptomatic atrial fibrillation. New onset. Patient was found to be in atrial fibrillation on arrival with a controlled heart rate. He states he followed up with Dr. Ibrahim in the office and had an echocardiogram done Friday and was supposed to follow-up in the office later this week. Patient is still in atrial fibrillation with a controlled heart rate of 76 beats per minute, with PVCs noted and PVC couplets. Otherwise no acute abnormality. Cardiology evaluated the patient and no further workup indicated for them. Will continue the patient on Xarelto upon discharge and have him follow up in the office. Continue monitoring the patient on telemetry. Cardiology's input is greatly appreciated. (3) Aortic stenosis: Code(s): I35.0 - Nonrheumatic aortic (valve) stenosis Status: Acute Assessment and Plan: Patient has asymptomatic aortic valve stenosis. Cardiology will continue following the patient during hospitalization. (4) Hypertension: Code(s): I10 - Essential (primary) hypertension Status: Acute Assessment and Plan: His blood pressure has been well controlled. Will continue his home medications and continue monitoring. 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 He states he is just diet controlled and follows up with his primary care regularly. HgbA1c was 5.6%. Well controlled. Will discontinue diabetes management. Time Spent With Patient Time with patient: 25 - 35 minutes Subjective Date/time seen: 08/12/20 12:24 Interval history: Date of service 08/12/2020: Patient is feeling well today. Having some increased pain to his right hip and right upper thigh. Did well with therapy today but cause increased pain. He only has urinating without any issues, continues to pass gas. He is eating with drinking without issues. He denies any fevers, chills, chest pain, shortness of breath, palpitations, nausea, vomiting, abdominal pain, urinary issues, leg swelling, calf pain or any other symptoms at this time. Review of Systems Review of Systems: All systems reviewed & are unremarkable except as noted in HPI and below Exam Narrative: Exam Narrative: General: 79-year-old man laying flat in bed with head elevated at 45?. Appears comfortable. In no acute distress. Skin: No jaundice or cyanosis. Good skin turgor. Neck: Full range of motion. Supple. Respiratory: Lungs are clear to auscultation bilaterall
--- NOTE | 2020-08-12 12:48 | PM.PNORT ---
Progress Note: A&P Assessment and Plan (1) Closed intertrochanteric fracture of left femur: Qualifiers: Encounter type: subsequent encounter Fracture alignment: displaced Fracture healing: with routine healing Qualified Code(s): S72.142D - Displaced intertrochanteric fracture of left femur, subsequent encounter for closed fracture with routine healing Code(s): S72.142A - Displaced intertrochanteric fracture of left femur, initial encounter for closed fracture Status: Acute Assessment and Plan: Postoperative day 1 left hip intertrochanteric fracture. Pain improved. Still having some pain with activity and movement. PT/OT with weight-bearing as tolerated. Xarelto for DVT prophylaxis. Continue with rehab Subjective Subjective Date/Time Seen: 08/12/20 12:48 patient awake and alert. Complains of left thigh pain. States that muscle spasms are better. Exam Const: General: healthy appearing; No in distress or confusion Orientation/consciousness: patient oriented x3 and No confusion HENMT: Head: normal to inspection, normocephalic and atraumatic Eyes: Conjunctivae: conjunctivae normal Sclera: sclerae normal Resp: Effort & Inspection: normal respiratory effort and no audible wheezes Neuro: General: patient oriented x3 and No confusion Extrem: Left lower extremity: hip/thigh Details: other ( Incisions clean dry and intact. Mild swelling. No erythema. Muscle compartments soft.), knee Details: normal to inspection and normal ROM; no tenderness and foot Details: vascular exam Details: dorsalis pedis pulse present, posterior tibial pulse present and normal capillary refill and motor-sensory exam light-touch normal in all toes Psych: Affect: normal affect Objective Data Vital Signs Vital Signs: Vital Signs - 24 hr 08/11/20 14:19 08/11/20 14:30 08/11/20 14:45 Temperature 97.9 F Pulse Rate 91 88 83 Respiratory Rate 18 16 15 Blood Pressure 158/80 H 144/68 H 136/69 Pulse Oximetry 100 100 93 08/11/20 15:00 08/11/20 15:14 08/11/20 15:30 Temperature Pulse Rate 88 81 83 Respiratory Rate 19 20 16 Blood Pressure 134/63 134/63 98/56 L Pulse Oximetry 94 95 96 08/11/20 15:43 08/11/20 15:58 08/11/20 16:00 Temperature 98.3 F 99.8 F H Pulse Rate 84 88 82 Respiratory Rate 18 18 Blood Pressure 125/75 126/75 Pulse Oximetry 96 95 08/11/20 16:13 08/11/20 17:13 08/11/20 20:51 Temperature 98.1 F 98.6 F 98.6 F Pulse Rate 88 81 Respiratory Rate 16 18 Blood Pressure 145/69 H 120/69 Pulse Oximetry 95 96 08/11/20 21:00 08/11/20 22:00 08/12/20 00:00 Temperature 98.5 F Pulse Rate 80 87 93 Respiratory Rate 16 Blood Pressure 125/62 Pulse Oximetry 96 08/12/20 02:00 08/12/20 04:00 08/12/20 06:00 Temperature 98.7 F 99.3 F Pulse Rate 81 109 H 80 Respiratory Rate 20 20 Blood Pressure 123/67 119/68 Pulse Oximetry 97 97 08/12/20 08:00 08/12/20 10:00 08/12/20 10:30 Temperature 98.5 F Pulse Rate 74 96 Respiratory Rate 18 Blood Pressure 95/60 L Pulse Oximetry 95 96 Intake/Output Intake/Output: Intake & Output 08/09/20 08/10/20 08/11/20 08/12/20 23:59 23:59 23:59 23:59 Intake Total 873 546 1350 Output Total 1450 900 Balance 100 -1050 590 Meds/Results Medications: Active Medications Generic Name Dose Route Start Last Admin Trade Name Freq PRN Reason Stop Dose Admin Acetaminophen 650 mg 08/10/20 21:14 Tylenol Tablet PO Q6H PRN Mild Pain (1-3) or Fever Hydrocodone Bitart/Acetaminophen 1 tab 08/10/20 21:14 08/11/20 17:46 [place] 5-325 Mg PO 1 tab Q6H PRN Administration Pain Rated 4-6 Candesartan Cilexetil 8 mg 08/11/20 09:00 08/12/20 08:50 At[place]and PO 8 mg DAILY VANDANA Administration Dextrose 12.5 gm 08/11/20 10:34 Dextrose 50% Syringe IV PUSH PRN PRN Hypoglycemia Protocol Diazepam 5 mg 08/11/20 15:43 Valium Po PO Q8H PRN Muscle Spasm Docusat
[2020-08-12 13:00] LABS: Glucose Point of Care 181 (65-105)
[2020-08-12] MEDS: RIVAROXABAN 10 MG TABLET PO (17:25)
[2020-08-12 17:45] LABS: Glucose Point of Care 145 (65-105)
[2020-08-12 21:59] LABS: Glucose Point of Care 176 (65-105)
[2020-08-13] VITALS (10 sets, daily range): BP systolic 107–136; BP diastolic 51–58; PULSE 79–107; RESP 16–20; TEMP 36.9–37.4; O2SAT 94–98
[2020-08-13 06:16] LABS: Anion Gap 7 mmol/L (8-16); Blood Urea Nitrogen 26 mg/dL (9-20); Calcium 8.2 mg/dL (8.4-10.2); Carbon Dioxide 28 mmol/L (22-30); Chloride 99 mmol/L (98-107); Estimated CRCL calculation 68 ml/min; Estimated Glomerular Filt Rate > 60; Glucose 162 mg/dL (75-110); Potassium 4.2 mmol/L (3.4-5.0); Sodium 134 mmol/L (137-145)
[2020-08-13 08:42] LABS: Glucose Point of Care 163 (65-105)
[2020-08-13] MEDS: DOCUSATE SODIUM 100 MG CAPSULE PO ×2 (09:22→17:04)
--- NOTE | 2020-08-13 09:23 | PM.PNORT ---
Progress Note: A&P Assessment and Plan (1) Closed intertrochanteric fracture of left femur: Qualifiers: Encounter type: subsequent encounter Fracture alignment: displaced Fracture healing: with routine healing Qualified Code(s): S72.142D - Displaced intertrochanteric fracture of left femur, subsequent encounter for closed fracture with routine healing Code(s): S72.142A - Displaced intertrochanteric fracture of left femur, initial encounter for closed fracture Status: Acute Assessment and Plan: Postoperative day 2 left hip intertrochanteric fracture. Pain controlled. Still having some pain with activity and movement. PT/OT with weight-bearing as tolerated. Xarelto for DVT prophylaxis. Continue with rehab placement when stable Subjective Subjective Date/Time Seen: 08/13/20 09:23 Resting comfortably. Participated in physical therapy yesterday. Exam Const: General: healthy appearing; No in distress or confusion Orientation/consciousness: patient oriented x3 and No confusion HENMT: Head: normal to inspection, normocephalic and atraumatic Eyes: Conjunctivae: conjunctivae normal Sclera: sclerae normal Resp: Effort & Inspection: normal respiratory effort and no audible wheezes Neuro: General: patient oriented x3 and No confusion Extrem: Left lower extremity: hip/thigh Details: other ( Incisions clean dry and intact. Mild swelling. No erythema. Muscle compartments soft.), knee Details: normal to inspection and normal ROM; no tenderness and foot Details: vascular exam Details: dorsalis pedis pulse present, posterior tibial pulse present and normal capillary refill and motor-sensory exam light-touch normal in all toes Psych: Affect: normal affect Objective Data Vital Signs Vital Signs: Vital Signs - 24 hr 08/12/20 10:00 08/12/20 10:30 08/12/20 12:00 Temperature 98.5 F Pulse Rate 96 88 Respiratory Rate 18 Blood Pressure 95/60 L Pulse Oximetry 95 96 08/12/20 14:00 08/12/20 16:00 08/12/20 20:00 Temperature 99.0 F Pulse Rate 83 84 98 Respiratory Rate 18 Blood Pressure 104/59 L Pulse Oximetry 94 08/12/20 22:00 08/13/20 00:00 08/13/20 04:00 Temperature 99.7 F H Pulse Rate 104 H 107 H 93 Respiratory Rate 20 Blood Pressure 120/68 Pulse Oximetry 97 08/13/20 06:00 08/13/20 08:00 Temperature 98.4 F Pulse Rate 105 H 91 Respiratory Rate 16 Blood Pressure 136/58 L Pulse Oximetry 98 Intake/Output Intake/Output: Intake & Output 08/10/20 08/11/20 08/12/20 08/13/20 23:59 23:59 23:59 23:59 Intake Total 695 792 9344 150 Output Total 1450 900 725 Balance 100 -1050 1530 -575 Meds/Results Medications: Active Medications Generic Name Dose Route Start Last Admin Trade Name Freq PRN Reason Stop Dose Admin Acetaminophen 650 mg 08/10/20 21:14 Tylenol Tablet PO Q6H PRN Mild Pain (1-3) or Fever Hydrocodone Bitart/Acetaminophen 1 tab 08/10/20 21:14 08/11/20 17:46 [place] 5-325 Mg PO 1 tab Q6H PRN Administration Pain Rated 4-6 Candesartan Cilexetil 8 mg 08/11/20 09:00 08/13/20 09:22 Atacand PO 8 mg DAILY VANDANA Administration Dextrose 12.5 gm 08/11/20 10:34 Dextrose 50% Syringe IV PUSH PRN PRN Hypoglycemia Protocol Diazepam 5 mg 08/11/20 15:43 Valium Po PO Q8H PRN Muscle Spasm Docusate Sodium 100 mg 08/11/20 17:00 08/13/20 09:22 Colace Capsule PO 100 mg BID VANDANA Administration Glucagon 1 mg 08/11/20 10:34 Glucagon For Inj IM PRN PRN Hypoglycemia Protocol Glucose 15 gm 08/11/20 10:34 Glutose 15 PO PRN PRN Hypoglycemia Protocol Dextrose 1,000 mls @ 100 mls/hr 08/11/20 10:34 Dextrose 5% 1,000 Ml IVPB PRN PRN Hypoglycemia Protocol Ibuprofen 800 mg/ Sodium 108 mls @ 200 mls/hr 08/11/20 15:43 Chloride IVPB Q6H PRN Pain Rated 1-3 Insulin Aspart 2 - 5 units 08/11
--- NOTE | 2020-08-13 10:13 | PM.IMPN ---
Progress Note: A&P Assessment and Plan (1) Closed intertrochanteric fracture of left femur: Qualifiers: Encounter type: subsequent encounter Fracture alignment: displaced Fracture healing: with routine healing Qualified Code(s): S72.142D - Displaced intertrochanteric fracture of left femur, subsequent encounter for closed fracture with routine healing Code(s): S72.142A - Displaced intertrochanteric fracture of left femur, initial encounter for closed fracture Status: Acute Assessment and Plan: Patient had tripped and fell prior to arrival. The patient has been admitted to the hospitalist service and Dr. Ford has been consulted for repair of his left hip fracture. Postop day 2 after having a left intramedullary hip screw by Dr. Ford Ortho Surgery He denies much pain at this time, just some spasming. Pain management, Discharge planning, Post-op care, DVT Prophylaxis per Dr. Ford Working on possible TRC Placement. Continue monitoring. Appreciate orthopedic consultation and their input. (2) Atrial fibrillation: Code(s): I48.91 - Unspecified atrial fibrillation Status: Acute Assessment and Plan: Asymptomatic atrial fibrillation. New onset. Patient was found to be in atrial fibrillation on arrival with a controlled heart rate. He states he followed up with Dr. Ibrahim in the office and had an echocardiogram done Friday and was supposed to follow-up in the office later this week. Patient is still in atrial fibrillation with an increased heart rate in the 90's-100's today going as high as 140 at times. Could be secondary to therapy and pain. Cardiology evaluated the patient and no further workup indicated for them. Will continue the patient on Xarelto upon discharge and have him follow up in the office. Continue monitoring the patient on telemetry. Cardiology's input is greatly appreciated. (3) Aortic stenosis: Code(s): I35.0 - Nonrheumatic aortic (valve) stenosis Status: Acute Assessment and Plan: Patient has asymptomatic aortic valve stenosis. Cardiology will continue following the patient during hospitalization. (4) Hypertension: Code(s): I10 - Essential (primary) hypertension Status: Acute Assessment and Plan: His blood pressure has been well controlled. Will continue his home medications and continue monitoring. 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 He states he is just diet controlled and follows up with his primary care regularly. HgbA1c was 5.6%. Well controlled. Will discontinue diabetes management. Time Spent With Patient Time with patient: 25 - 35 minutes Subjective Date/time seen: 08/13/20 10:13 Interval history: Date of service 08/13/2020: Patient is feeling well today. Having some increased pain to his right hip and right upper thigh with intermittent spasming. Did well with therapy today but cause increased pain. He only has urinating without any issues, continues to pass gas. He is eating with drinking without issues. He denies any fevers, chills, chest pain, shortness of breath, palpitations, nausea, vomiting, abdominal pain, urinary issues, leg swelling, calf pain or any other symptoms at this time. Review of Systems Review of Systems: All systems reviewed & are unremarkable except as noted in HPI and below Exam Narrative: Exam Narrative: General: 79-year-old man laying flat in bed with head elevated at 45?. Appears comfortable. In no acute distress. Skin: No
[2020-08-13 13:52] LABS: Glucose Point of Care 189 (65-105)
[2020-08-13] MEDS: RIVAROXABAN 10 MG TABLET PO (17:04)
[2020-08-13 17:35] LABS: Glucose Point of Care 199 (65-105)
[2020-08-13] MEDS: diazePAM (*CRX) 5 MG TABLET PO (20:18)
[2020-08-13] MEDS: HYDROcodone/acetaminophen (*CRX) 5-325 MG TABLET 1 TAB PO (20:18)
[2020-08-13 21:17] LABS: Glucose Point of Care 189 (65-105)
[2020-08-14] VITALS (8 sets, daily range): BP systolic 96–121; BP diastolic 54–64; PULSE 72–105; RESP 16–20; TEMP 36.1–37.1; O2SAT 96–98
[2020-08-14] MEDS: HYDROcodone/acetaminophen (*CRX) 5-325 MG TABLET 1 TAB PO (04:18)
[2020-08-14] MEDS: diazePAM (*CRX) 5 MG TABLET PO (07:50)
[2020-08-14 09:40] LABS: Glucose Point of Care 170 (65-105)
[2020-08-14] MEDS: DOCUSATE SODIUM 100 MG CAPSULE PO ×2 (09:50→18:13)
--- NOTE | 2020-08-14 10:13 | PM.PNORT ---
Progress Note: A&P Assessment and Plan (1) Closed intertrochanteric fracture of left femur: Qualifiers: Encounter type: subsequent encounter Fracture alignment: displaced Fracture healing: with routine healing Qualified Code(s): S72.142D - Displaced intertrochanteric fracture of left femur, subsequent encounter for closed fracture with routine healing Code(s): S72.142A - Displaced intertrochanteric fracture of left femur, initial encounter for closed fracture Status: Acute Assessment and Plan: Postoperative day 3 left hip intertrochanteric fracture. Pain controlled. Still having some pain with activity and movement. PT/OT with weight-bearing as tolerated. Xarelto for DVT prophylaxis. Continue with rehab placement when stable Subjective Subjective Date/Time Seen: 08/14/20 07:15 patient feels better this morning. Denies numbness or tingling. Exam Const: General: healthy appearing; No in distress or confusion Orientation/consciousness: patient oriented x3 and No confusion HENMT: Head: normal to inspection, normocephalic and atraumatic Eyes: Conjunctivae: conjunctivae normal Sclera: sclerae normal Resp: Effort & Inspection: normal respiratory effort and no audible wheezes Neuro: General: patient oriented x3 and No confusion Extrem: Left lower extremity: hip/thigh Details: other ( Incisions clean dry and intact. Mild swelling. No erythema. Muscle compartments soft.), knee Details: normal to inspection and normal ROM; no tenderness and foot Details: vascular exam Details: dorsalis pedis pulse present, posterior tibial pulse present and normal capillary refill and motor-sensory exam light-touch normal in all toes Psych: Affect: normal affect Objective Data Vital Signs Vital Signs: Vital Signs - 24 hr 08/13/20 12:00 08/13/20 14:00 08/13/20 16:00 Temperature 99.2 F Pulse Rate 96 79 86 Respiratory Rate 20 Blood Pressure 107/51 L Pulse Oximetry 96 08/13/20 19:40 08/13/20 20:00 08/13/20 21:57 Temperature 99.4 F Pulse Rate 88 80 Respiratory Rate 20 Blood Pressure 113/52 L Pulse Oximetry 98 94 08/14/20 00:00 08/14/20 04:00 08/14/20 06:00 Temperature 97.8 F Pulse Rate 90 105 H 76 Respiratory Rate 20 Blood Pressure 108/61 Pulse Oximetry 98 Intake/Output Intake/Output: Intake & Output 08/11/20 08/12/20 08/13/20 08/14/20 23:59 23:59 23:59 23:59 Intake Total 400 2430 910 750 Output Total 1450 900 975 500 Balance -1050 1530 -65 250 Meds/Results Medications: Active Medications Generic Name Dose Route Start Last Admin Trade Name Freq PRN Reason Stop Dose Admin Acetaminophen 650 mg 08/10/20 21:14 Tylenol Tablet PO Q6H PRN Mild Pain (1-3) or Fever Hydrocodone Bitart/Acetaminophen 1 tab 08/10/20 21:14 08/14/20 04:18 [place] 5-325 Mg PO 1 tab Q6H PRN Administration Pain Rated 4-6 Candesartan Cilexetil 8 mg 08/11/20 09:00 08/14/20 09:50 Atacand PO 8 mg DAILY VANDANA Administration Dextrose 12.5 gm 08/11/20 10:34 Dextrose 50% Syringe IV PUSH PRN PRN Hypoglycemia Protocol Diazepam 5 mg 08/11/20 15:43 08/14/20 07:50 Valium Po PO 5 mg Q8H PRN Administration Muscle Spasm Docusate Sodium 100 mg 08/11/20 17:00 08/14/20 09:50 Colace Capsule PO 100 mg BID VANDANA Administration Glucagon 1 mg 08/11/20 10:34 Glucagon For Inj IM PRN PRN Hypoglycemia Protocol Glucose 15 gm 08/11/20 10:34 Glutose 15 PO PRN PRN Hypoglycemia Protocol Dextrose 1,000 mls @ 100 mls/hr 08/11/20 10:34 Dextrose 5% 1,000 Ml IVPB PRN PRN Hypoglycemia Protocol Ibuprofen 800 mg/ Sodium 108 mls @ 200 mls/hr 08/11/20 15:43 Chloride IVPB Q6H PRN Pain Rated 1-3 Insulin Aspart 2 - 5 units 08/11/20 12:00 08/14/20 09:43 Novolog SUB-Q Not Given TIDWM VANDANA Protocol Magnesium Hydroxide 30 ml 1
[2020-08-14 12:51] LABS: Glucose Point of Care 219 (65-105)
[2020-08-14] MEDS: MAGNESIUM HYDROXIDE SUSP 30 ML UDC PO (14:18)
--- NOTE | 2020-08-14 16:30 | PM.IMPN ---
Progress Note: A&P Assessment and Plan (1) Closed intertrochanteric fracture of left femur: Qualifiers: Encounter type: subsequent encounter Fracture alignment: displaced Fracture healing: with routine healing Qualified Code(s): S72.142D - Displaced intertrochanteric fracture of left femur, subsequent encounter for closed fracture with routine healing Code(s): S72.142A - Displaced intertrochanteric fracture of left femur, initial encounter for closed fracture Status: Acute Assessment and Plan: Patient had tripped and fell prior to arrival. The patient has been admitted to the hospitalist service and Dr. Ford has been consulted for repair of his left hip fracture. Postop day 3 after having a left intramedullary hip screw by Dr. Ford Ortho Surgery He denies much pain at this time. Pain management, Discharge planning, Post-op care, DVT Prophylaxis per Dr. Ford His insurance denied acute rehab for him at this time and we will have to do a peer to peer to see if he will get approved or else he will need to go home with home health versus an SNF. Continue monitoring. Appreciate orthopedic consultation and their input. (2) Atrial fibrillation: Code(s): I48.91 - Unspecified atrial fibrillation Status: Acute Assessment and Plan: Asymptomatic atrial fibrillation. New onset. Patient was found to be in atrial fibrillation on arrival with a controlled heart rate. He states he followed up with Dr. Ibrahim in the office and had an echocardiogram done Friday and was supposed to follow-up in the office later this week. Patient is still in atrial fibrillation with an increased heart rate in the 90's-100's today going as high as 130 at times. Could be secondary to therapy and pain. Cardiology evaluated the patient and no further workup indicated for them. Will continue the patient on Xarelto upon discharge and have him follow up in the office. I talked with cardiology about his heart rate control and they will not start him on a beta-octavia at this time since it is most likely secondary to his increased pain and therapy. Continue monitoring the patient on telemetry. Cardiology's input is greatly appreciated. (3) Aortic stenosis: Code(s): I35.0 - Nonrheumatic aortic (valve) stenosis Status: Acute Assessment and Plan: Patient has asymptomatic aortic valve stenosis. Cardiology will continue following the patient during hospitalization. (4) Hypertension: Code(s): I10 - Essential (primary) hypertension Status: Acute Assessment and Plan: His blood pressure has been well controlled. Will continue his home medications and continue monitoring. 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 He states he is just diet controlled and follows up with his primary care regularly. HgbA1c was 5.6%. Well controlled. Will discontinue diabetes management. Time Spent With Patient Time with patient: 25 - 35 minutes Subjective Date/time seen: 08/14/20 16:30 Interval history: Date of service 08/14/2020: Patient is feeling well today. He still has not had a bowel movement and is concerned. We will try some milk of magnesia tonight and if he still has not gone may need some suppository or enema. He is working with therapy at this time. He is eating with drinking without issues. He denies any fevers, chills, chest pain, shortness of breath, palpitations, nausea, vomiting, abdominal pain, urinary issues, leg swelling, calf pain or any other
[2020-08-14] MEDS: RIVAROXABAN 10 MG TABLET PO (18:13)
[2020-08-14 20:33] LABS: Glucose Point of Care 218 (65-105)
[2020-08-15 04:53] LABS: Glucose Point of Care 178 (65-105)
[2020-08-15 06:00] VITALS: BP 128/63; PULSE 96; RESP 18; TEMP 36.8; O2SAT 98
[2020-08-15 06:09] LABS: Hematocrit 30.5 % (42.0-52.0); Hemoglobin 10.5 g/dL (14.0-18.0); Mean Corpuscular HGB Conc 34.4 g/dl (32-36); Mean Corpuscular Hemoglobin 32.3 pg (26-34); Mean Corpuscular Volume 93.8 fl (80-100); Mean Platelet Volume 10.7 fl (7.4-10.4); Platelet Count Result 283 k/mm3 (150-375); Red Blood Count 3.25 M/mm3 (4.6-6.20); Red Cell Distribution Width 12.7 % (11.5-14.5); White Blood Count 13.4 K/mm3 (4.5-10.0)
[2020-08-15 06:32] LABS: Anion Gap 6 mmol/L (8-16); Blood Urea Nitrogen 46 mg/dL (9-20); Calcium 8.2 mg/dL (8.4-10.2); Carbon Dioxide 29 mmol/L (22-30); Chloride 98 mmol/L (98-107); Estimated CRCL calculation 62 ml/min; Estimated Glomerular Filt Rate > 60; Glucose 174 mg/dL (75-110); Potassium 4.1 mmol/L (3.4-5.0); Sodium 133 mmol/L (137-145)
[2020-08-15] MEDS: ACETAMINOPHEN 325 MG TABLET 650 MG PO (07:01)
[2020-08-15 08:17] LABS: Glucose Point of Care 165 (65-105)
[2020-08-15] MEDS: DOCUSATE SODIUM 100 MG CAPSULE PO (08:54)
[2020-08-15 11:59] LABS: Glucose Point of Care 215 (65-105)
--- NOTE | 2020-08-15 12:33 | PM.IMPN ---
Progress Note: A&P Assessment and Plan (1) Closed intertrochanteric fracture of left femur: Qualifiers: Encounter type: subsequent encounter Fracture alignment: displaced Fracture healing: with routine healing Qualified Code(s): S72.142D - Displaced intertrochanteric fracture of left femur, subsequent encounter for closed fracture with routine healing Code(s): S72.142A - Displaced intertrochanteric fracture of left femur, initial encounter for closed fracture Status: Acute Assessment and Plan: The patient sustained a mechanical fall and suffered an intertrochanteric and subtrochanteric fracture of the proximal left femur. He underwent left intramedullary hip screw by Dr. Ford 08/11/20. His pain is well-controlled and he is progressing with PT/OT. His insurance company denied the peer to peer review for [facility] and has recommended SNF. Care coordination is working on SNF placement. Post-operative pain management, discharge planning, post-op care, DVT Prophylaxis, and weight-bearing per orthopedic surgery. (2) Atrial fibrillation: Code(s): I48.91 - Unspecified atrial fibrillation Status: Acute Assessment and Plan: Pt was recently diagnosed with atrial fibrillation at a [facility] screening visit. He is asymptomatic and rate is well-controlled. He is established with Dr. Ibrahim and just had an echocardiogram outpatient prior to admission. He was evaluated by cardiology during this admission and cardiology recommended no further workup at this time. Cardiology has not recommended rate control at this time as his episodes of increased heart rate are likely due increased pain and activity with therapy. Heart rate has improved. Continue xarelto. Continue telemetry monitoring. (3) Aortic stenosis: Code(s): I35.0 - Nonrheumatic aortic (valve) stenosis Status: Acute Assessment and Plan: The pt has a known hx of asymptomatic aortic stenosis. Echocardiogram performed outpatient prior to admission demonstrated mild aortic valve stenosis with a valve area of 1.3 cm2 per review of cardiology notes. Plan for continued outpatient follow-up with cardiology for surveillance. (4) Hypertension: Code(s): I10 - Essential (primary) hypertension Status: Acute Assessment and Plan: Blood pressures were reviewed and are reasonably controlled. Continue candesartan. Continue to monitor. (5) Pre-diabetes: Code(s): R73.03 - Prediabetes Status: Acute Assessment and Plan: Hemoglobin A1c was 5.6%. Pt has a known hx of pre-diabetes and has elected for lifestyle modification with diet control. (6) Constipation: Code(s): K59.00 - Constipation, unspecified Status: Acute Assessment and Plan: Continue docusate and magnesium hydroxide. Add ducolax suppository PRN. 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 Hb is stable. Anemia is acute and likely secondary to post-op blood loss. Continue to monitor and transfuse PRN to maintain Hb >7. (8) Lightheadedness: Code(s): R42 - Dizziness and giddiness Status: Acute Assessment and Plan: Check orthostatic BP. Continue STEWART hose. BUN is higher. Subjective Date/time seen: 08/15/20 12:33 Mr. Guzman is an 79 y.o. male with PMH significant for atrial fibrillation, aortic stenosis, hypertension, and pre-diabetes who is seen in follow-up for a left hip intertrochanteric fracture s/p left intramedullary hip screw by Dr. Ford 08/11/20. He reports that he feels constipated. He has had two small bowel movements (yesterday and earlier this AM), but still feels like he needs to have a large one. He states that he has had the urge to go several times but by the time he makes it to the toil
[2020-08-15] MEDS: MAGNESIUM HYDROXIDE SUSP 30 ML UDC PO (12:34)
[2020-08-15 13:49] LABS: SARS-CoV-2 RNA PCR Negative
[2020-08-15 14:00] VITALS: BP 100/45; PULSE 102; RESP 18; TEMP 36.5; O2SAT 100
[2020-08-15 16:34] VITALS: BP 134/72; BP 135/66; BP 148/80
--- NOTE | 2020-08-15 20:35 | PM.DS ---
DS: Admitting Diagnosis Admitting Diagnosis Admitting Diagnosis: L hip FX, AFib DS: Discharge Diagnosis Discharge Diagnosis (1) Closed intertrochanteric fracture of left femur: Qualifiers: Encounter type: subsequent encounter Fracture alignment: displaced Fracture healing: with routine healing Qualified Code(s): S72.142D - Displaced intertrochanteric fracture of left femur, subsequent encounter for closed fracture with routine healing Code(s): S72.142A - Displaced intertrochanteric fracture of left femur, initial encounter for closed fracture Status: Acute Assessment and Plan: Discharge Summary (Date of service 08/15/20): Mr. Guzman is an 79 y.o. male with PMH signifcant for recently diagnosed atrial fibrillation at [facility] screening approximately 1 month ago, hypertension, and pre-diabetes who presented to the emergency department for the evaluation of left hip pain after suffering a mechanical fall when he lost balance transitioning from a large area rug to wood angella. He had no associated head trauma or loss of consciousness. Initial workup in the emergency department included plain films which demonstrated an intertrochanteric and subtrochanteric fracture of the proximal left femur. CXR showed no acute abnormalities. Initial labs were essentially unremarkable with the exception of mild leukocytosis (WBC 10,400) and 1+ ketones and 3-5 RBC/hpf on UA. He was admitted to the hospitalist service and orthopedic surgery was consulted. He underwent left intramedullary hip screw by Dr. Ford 08/11/20. He tolerated the procedure well with no immediate complications. His pain was well-controlled and he is progressing with PT/OT but will need to continue PT/OT at discharge and was not felt ready to discharge home. His insurance company denied the peer to peer review for [facility] and has recommended SNF. He was accepted to SNF and discharged in stable condition to SNF on the evening of 08/15/20. (2) Atrial fibrillation: Code(s): I48.91 - Unspecified atrial fibrillation Status: Acute Assessment and Plan: Pt was recently diagnosed with atrial fibrillation at a [facility] screening visit. He is asymptomatic and rate is well-controlled. He is established with Dr. Ibrahim and just had an echocardiogram outpatient prior to admission. He was evaluated by cardiology during this admission and cardiology recommended no further workup at this time. Cardiology has not recommended rate control at this time as his episodes of increased heart rate were likely due increased pain and activity with therapy. Heart rate has improved. Xarelto was continued. He will take xarelto 10mg for 21 days (08/16/20-09/05/20 (ortho recommends to prevent hematoma and this was fine from a cardiology standpoint) and then resume regular dosing of 20mg once daily with the evening meal 09/06/20. He will need to continue follow-up outpatient with cardiology. (3) Aortic stenosis: Code(s): I35.0 - Nonrheumatic aortic (valve) stenosis Status: Acute Assessment and Plan: The pt has a known hx of asymptomatic aortic stenosis. Echocardiogram performed outpatient prior to admission demonstrated mild aortic valve stenosis with a valve area of 1.3 cm2 per review of cardiology notes. Plan for continued outpatient follow-up with cardiology for surveillance. (4) Hypertension: Code(s): I10 - Essential (primary) hypertension Status: Acute Assessment and Plan: Blood pressures were reviewed and reasonably controlled. Candesartan was continued. (5) Pre-diabetes: Code(s): R73.03 - Prediabetes Status: Acute Assessment and Plan: Hemoglobin A1c was 5.6%. Pt has a known hx of pre-diabetes and has elected for lifestyle modification with diet control. (6) Constipation: Code(s): K59.00 - Constipation, unspecified Status: Acute Assessment and Plan: He was treated wi
== END 2020-08-15 16:37 | DRG 482 ==
LOC: ANHED 17:03 → ANH3MEDSUR 17:59
PROVIDERS: Internal Medicine; Orthopaedic Surgery; Physician Assistant; Admitting Provider Internal Medicine; Emergency Provider Emergency Medicine; PCP Family Medicine; Visit Provider Physician Assistant
PROC: 0QS736Z Reposition Left Upper Femur with Intramedullary Internal Fixation Device, Percutaneous Approach (ICD-10-PCS; CPT 27245; principal; 2020-08-11 12:00)
DX: S72.142A Displaced intertrochanteric fracture of left femur, initial encounter for closed fracture (principal); I48.91 Unspecified atrial fibrillation; Z20.828 Contact with and (suspected) exposure to other viral communicable diseases; R31.29 Other microscopic hematuria; I35.0 Nonrheumatic aortic (valve) stenosis; Z68.33 Body mass index [BMI] 33.0-33.9, adult; I10 Essential (primary) hypertension; R73.03 Prediabetes; R42 Dizziness and giddiness; K59.00 Constipation, unspecified; E66.9 Obesity, unspecified; G62.9 Polyneuropathy, unspecified; W18.39XA Other fall on same level, initial encounter
CPT/HCPCS: 36415; 51702; 71045; 73502; 80048; 80053; 81001; 83036; 84484; 85025; 85027; 85610; 85730; 86850; 86900; 86901; 87635; 93005; 96374; 96375; 96376; 97110; 97116; 97161; 97165; 97530; 97535; 99285; A9270; C1713; C9803; G0378; J0131; J0690; J1100; J2270; J2405; J2704; J3010; J3480; J7030; J7120; U0003

== ENCOUNTER 2022-06-19 20:25 | Emergency (ER) | payer MEDICARE, SELFPAY ==
[2022-06-19] VITALS (8 sets, daily range): BP systolic 145–154; BP diastolic 80–94; PULSE 73–99; RESP 14–20; TEMP 36.8; O2SAT 98–100
--- NOTE | ~2022-06-19 | XR_ITS ---
EXAMINATION: XR chest 2V DATE: 06/19/2022 23:56 INDICATION: Hypertension. Palpitations. TECHNIQUE: Frontal and lateral views of the chest were obtained. COMPARISON: Chest 2 views 08/10/2020 FINDINGS: There is no pneumonia, pleural effusion, or pneumothorax. The heart size is normal. IMPRESSION: 1. No acute cardiopulmonary disease. Reviewed, dictated and finalized at location A.
--- NOTE | 2022-06-19 20:41 | ECG_ITS ---
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
[2022-06-19 21:41] LABS: Basophils Absolute Auto 0.1 K/mm3 (0.0-0.1); Basophils Percent Auto 0.7 % (0.2-1.2); Eosinophils Absolute Auto 0.1 K/mm3 (0-0.3); Eosinophils Percent Auto 0.8 % (0-4.4); Hematocrit 44.9 % (42.0-52.0); Hemoglobin 14.8 g/dL (14.0-18.0); Immature Granulocyte Absolute 0.04 K/mm3 (0.00-0.031); Immature Granulocyte Percent A 0.4 % (0-0.5); Lymphocytes Absolute Auto 1.32 K/mm3 (0.9-3.2); Lymphocytes Percent Auto 13.4 % (18.3-44.2); Mean Corpuscular Hemoglobin 31.4 pg (26-34); Mean Corpuscular Volume 95.1 fl (80-100); Mean Platelet Volume 9.7 fl (7.4-10.4); Monocytes Percent Auto 9.6 % (2.6-8.5); Neutrophils Absolute Auto 7.4 K/mm3 (1.3-6.7); Neutrophils Percent Auto 75.1 % (45.5-73.1); Platelet Count Result 287 k/mm3 (150-375); Red Blood Count 4.72 M/mm3 (4.6-6.20); Red Cell Distribution Width 13.1 % (11.5-14.5); White Blood Count 9.9 K/mm3 (4.5-10.0)
[2022-06-19 21:55] LABS: Alanine Aminotransferase 28 U/L (6-50); Alkaline Phosphatase 94 U/L (38-126); Anion Gap 10 mmol/L (8-16); Aspartate Amino Transferase 43 U/L (17-59); Bilirubin,Total 0.7 mg/dL (0.2-1.3); Blood Urea Nitrogen 19 mg/dL (9-20); Calcium 9.2 mg/dL (8.4-10.2); Carbon Dioxide 30 mmol/L (22-30); Chloride 100 mmol/L (98-107); Estimated CRCL calculation 57 ml/min; Estimated Glomerular Filt Rate > 60; Glucose 142 mg/dL (65-110); Potassium 4.1 mmol/L (3.4-5.0); Sodium 140 mmol/L (137-145)
[2022-06-19 22:06] LABS: Troponin I 0.016 ng/mL (0.000-0.034)
--- NOTE | 2022-06-19 22:53 | ED.GENADULT ---
HPI - General Adult General Chief complaint: Recheck/Abnormal Lab/Rx Stated complaint: ELEVATED BP Time Seen by Provider: 06/19/22 22:07 History of Present Illness HPI narrative: 81-year-old male history of atrial fibrillation presented to the emergency department for evaluation for an episode at 4:30 PM where he felt his heart rate was elevated and his blood pressure was elevated. Patient does have a history of A. fib and hypertension. Patient is on Xarelto for his A. fib and candesartan for his blood pressure. Patient states that approximately 430 he had onset of the sensation. Patient states his blood pressure was running approximately 180/90. Upon arrival to emergency department patient states he feels improved. Patient states he does not feel like his heart rate is fast. Patient denies any current chest pain or shortness of breath. Patient reports he has been taking his medication as directed. Patient reports he did have recent follow-up with cardiology, Dr. Ibrahim. Related Data Home Medications Medication Instructions Recorded Confirmed candesartan 8 mg tablet 8 mg PO DAILY 08/10/20 10/31/20 Allergies Allergy/AdvReac Type Severity Reaction Status Date / Time No Known Allergies Allergy Verified 06/19/22 20:37 Review of Systems Review of Systems: CONSTITUTIONAL: Denies fever, chills, or sweats. EYES: Denies visual changes, redness, or discharge. ENT: Denies rhinorrhea, congestion, sore throat, or otalgia. CARDIOVASCULAR: See HPI RESPIRATORY: Denies cough or dyspnea. GASTROINTESTINAL: Denies abdominal pain, nausea, vomiting, or diarrhea. GENITOURINARY: Denies dysuria or hematuria. SKIN: Denies rash or itching. MUSCULOSKELETAL: Denies back pain, joint pain, or myalgia. NEUROLOGIC: Denies headache, numbness, or weakness. [facility] Past Medical History Medical History (Updated 06/20/22 @ 00:00 by Background Daemon) Atrial fibrillation Hypertension Peripheral neuropathy Mild neuropathy of the lower legs bilaterally. Pre-diabetes Surgical History Surgical History History of tonsillectomy Family History Family History Mother Stomach cancer Father Malignant neoplasm of prostate Bone cancer Grandparent Cerebrovascular accident Social History Social History Social History: Surrogate decision maker: Nevin Claros, daughter. Code status: Full code. Smoking status: Never smoker Alcohol intake: never Alcohol use details: Drinks maybe 1 beer every 2 to 3 weeks at the most. Substance use: never Additional living arrangements comments: Lives in his own home in [place]. Additional occupation/education comments: Retired from working in a foundry and doing security. Gender identity (if verbalized by the patient): Male Spiritual care concerns: No Exam Narrative: APPEARANCE: Well appearing, no pain, no distress, well-nourished. HEAD: normocephalic, atraumatic. EYES: PERRLA/EOMI, conjunctivae clear. NECK: Supple. No adenopathy, no masses. RESPIRATORY: Airway patent, respirations nonlabored. Clear to auscultation bilaterally, no rales, rhonchi, wheezing. CARDIOVASCULAR: Regular rate and rhythm without murmurs rubs or gallops. ABDOMINAL: Soft, nontender, nondistended, normal bowel sounds MUSCULOSKELETAL: Moves all extremities. Strength/ROM intact, No edema, No calf tenderness. NEURO: Alert. Cranial nerves II through XII intact. Grossly intact SKIN: Warm, dry. Normal Color Course Course Emergency Course: Patient feels improved. Patient's heart rate is controlled and patient's blood pressure is not elevated. Patient was encouraged of close follow-up with cardiology. All question concerns were addressed. Vital Signs Vital signs: Vital Signs Temperature 98.2 F 06/19/22 20:28 Pulse Rate 99 06/19/22 20:28 Respiratory
[2022-06-20 00:25] VITALS: BP 138/74; PULSE 84; RESP 12; O2SAT 100
== END 2022-06-20 00:30 | disposition home or self-care (01) ==
LOC: ANHED 06-20 00:16
PROVIDERS: Emergency Provider Emergency Medicine; PCP Family Medicine
DX: R00.2 Palpitations (principal); I10 Essential (primary) hypertension; I48.91 Unspecified atrial fibrillation
CPT/HCPCS: 36415; 71046; 80053; 84484; 85025; 93005; 99284